=== PATIENT | female | born 1940 | race Caucasian/White ===

== ENCOUNTER 2019-01-16 07:04 | Day surgery (SDC) | payer OTHER, MEDICARE ==
[2019-01-13 09:07] VITALS: BMI 27.4
[~2019-01-16 07:04] MED LIST: BUPIVACAINE HCL/PF (5 MG/ML) 30 ML VIAL IJ ONE; DEXAMETHASONE SOD PHOSPHATE 4 MG/1 ML VIAL IVPUSH ONE; LIDOCAINE HCL 0.5% EPINEPHRINE 1:200,000 50 ML VIAL IJ ONE
[2019-01-16] MEDS ORDERED: LIDOCAINE HCL 1%, 10 MG/ML (20ML VIAL) ONE (07:19)
[2019-01-16] MEDS ORDERED: BUPIVACAINE HCL/PF 0.5% (5MG/ML) 10 ML VIAL ONE (07:19)
[2019-01-16] MEDS ORDERED: DEXAMETHASONE SOD PHOSPHATE 4 MG/1 ML VIAL ONE (07:27)
[2019-01-16] MEDS ORDERED: MIDAZOLAM HCL 2 MG/2 ML SINGLE DOSE VIAL ONE ×2 (08:19→08:43)
[2019-01-16] MEDS ORDERED: PROPOFOL 20 ML ONE ×2 (08:23)
[2019-01-16] MEDS ORDERED: BUPIVACAINE HCL/PF (5 MG/ML) 30 ML VIAL IJ ONE (08:26)
--- NOTE | 2019-01-16 09:39 | OP ---
Operative Note - Note: Operative Date: 01/16/19 Pre-Operative Diagnosis: Hammertoe deformity bilateral Operation: Revision of failed hammertoe surgery right and left 4th toes. Total nail avulsions right and left 4th toes. Surgeon: Aylin Ramos Printing Supervisor: Chencho Kamara Anesthesiologist/SCIENTIFIC INVESTIGATOR: Mallory Siu MD Anesthesia: MAC Specimens Removed: Skin and bone right and left 4th toe Estimated Blood Loss (mls): 2 Operative Report Dictated: Yes
[2019-01-16 11:21] VITALS: BP 138/67; PULSE 69; TEMP 98.2
--- NOTE | 2019-01-17 14:10 | PATH ---
Surgical Pathology Report Patient Name: JENNY ROBINS [facility]. Rec. #: [id number] /Age/Gender: 1940 (Age: 78) / F Account: [id number] Location: [facility] SURGICAL Taken: 01/16/2019 Received: 01/16/2019 Reported: 01/17/2019 Physicians: Aylin Ramos DPM Specimen(s) Received A: RIGHT AND LEFT TOE NAIL 4TH DIGITIS B: SKIN AND BONE LEFT TOE 4TH DIGIT C: SKIN AND BONE RIGHT TOE 4TH DIGIT Clinical History Bilateral hammertoe Final Diagnosis A. TOE NAIL, FOURTH DIGITS, RIGHT AND LEFT, EXCISION: PORTIONS OF NAIL PLATE AND BED WITHOUT SIGNIFICANT PATHOLOGIC FINDINGS. PAS FUNGAL STAIN IS NEGATIVE. B. SKIN AND BONE, TOE, FOURTH DIGIT, LEFT, EXCISION: BONE WITH DEGENERATIVE CHANGES AND FATTY MARROW. SKIN WITHOUT SIGNIFICANT PATHOLOGIC FINDINGS. C. SKIN AND BONE, TOE, FOURTH DIGIT, RIGHT, EXCISION: BONE WITH SCANT FATTY MARROW. SKIN WITHOUT SIGNIFICANT PATHOLOGIC FINDINGS. Electronically Signed Marizol Loza M.D. Gross Description A. Received in formalin labeled "right and left toenail fourth digits," are 2 larson, undesignated nails measuring 1.0 x 0.8 x 0.1 cm and 1.3 x 1.1 x 0.1 cm. The nails are sections and entirely submitted in 2 cassettes. B. Received in formalin labeled "skin and bone left toe fourth digit," are 2 portions of bone measuring 1.2 x 0.9 x 0.6 cm and 2.0 x 1.0 x 1.0 cm. Also received within the same container is a 3.7 x 1.3 cm larson skin shave. Invoice Control Clerk sections are submitted in one cassette, following decalcification. C. Received in formalin labeled "skin and bone right toe fourth digit," are 2 larson portions of skin measuring 2.1 x 0.9 x 0.3 cm and 1.6 x 1.2 x 0.4 cm. Also received within the same container is a 2.0 x 1.2 x 0.7 cm larson-yellow portion of bone. Invoice Control Clerk sections are submitted in one cassette, following decalcification. /01/16/2019 [place]01/16/2019
--- NOTE | 2019-01-23 20:47 | OP ---
DATE OF OPERATION: 01/16/2019 SURGEON: Aylin Ramos DPM Attention was drawn to the 4th digit of the right and left feet, where marked deformity was noted. Local anesthesia was utilized along with sedation. The digit was identified. A marking pen was utilized and an incision was planned so as to remodel the distal aspect of the 4th digit, both feet. The toenail was removed. Two semielliptical incisions were made, converging at the distal aspect of the digit. The interposing wedge of skin was removed. All bone was removed distal to the proximal phalanx, including the middle and distal phalanges. A copious flush was instituted. Plastic correction was accomplished, as the distal end of the digit was placed back into corrected position. Then 4-0 nylon sutures were utilized on the skin, and a corrective dressing soaked with Betadine was applied. Dry sterile dressings were applied. Postoperative x-rays were taken, and the patient will be seen in my office. JOSE DAVID CARPENTER/[id number]
== END 2019-01-16 11:40 | disposition home or self-care (01) ==
LOC: JASU-SURG 07:04
PROVIDERS: ATTEND Podiatrist Foot Surgery
PROC: 0SRQ0JZ Replacement of Left Toe Phalangeal Joint with Synthetic Substitute, Open Approach (ICD-10-PCS; 2019-01-16)
PROC: 0SRP0JZ Replacement of Right Toe Phalangeal Joint with Synthetic Substitute, Open Approach (ICD-10-PCS; principal; 2019-01-16 08:00)
DX: M20.41 Other hammer toe(s) (acquired), right foot (principal)
CPT/HCPCS: 73630-TC-LT; 73630-TC-RT-FY; 88304-TC; 88311-TC; 88312-TC; 94760; 97116-GP